=== PATIENT | female | born 2005 | race Caucasian/White ===

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

== ENCOUNTER 2024-02-14 13:30 | Outpatient (REF) | payer MEDICAID, SELFPAY ==
[2024-02-16 15:59] LABS: Chlamydia Result Negative (Negative); GC Result Negative (Negative)
== END 2024-02-14 13:31 | disposition home or self-care (01) ==
LOC: LBN 13:30
PROVIDERS: PCP Nurse Practitioner Pediatrics; Visit Provider Nurse Practitioner Pediatrics
DX: Z11.3 Encounter for screening for infections with a predominantly sexual mode of transmission (principal); Z00.00 Encounter for general adult medical examination without abnormal findings; Z00.129 Encounter for routine child health examination without abnormal findings; G43.109 Migraine with aura, not intractable, without status migrainosus
CPT/HCPCS: 87491; 87591